=== PATIENT | female | born 1960 | race Caucasian/White ===

== ENCOUNTER 2017-04-29 12:15 | Emergency (ER) | payer SELFPAY ==
[2017-04-29] MEDS ORDERED: Ketorolac INJ* 30 MG/ML 1 ML VIAL IM ONE (14:38)
--- NOTE | 2017-04-29 14:39 | UC ---
Headache HPI - HPI Summary HPI Summary: 56 yo white female with gradual onset neck pain and decreased ROM as well as right hemicranial headache from occiput to forehead and from occiput to throat any movement of head intensifies pain as does lifting right arm no n/v/d no f/c no focal weakness or numbness no cough/cp or sob no trauma - History Of Current Complaint Chief Complaint: UCGeneralIllness Stated Complaint: NECK/HEAD PAIN Time Seen by Provider: 04/29/17 14:26 Hx Obtained From: Patient Onset/Duration: Gradual Onset, Lasting Days Onset Of Symptoms: Sudden Initially Headache Was: "Worst Headache Ever" Currently Pain Is: Current Pain Scale(0-10)= - 10 Pain Scale Used: 0-10 Numeric Timing: Constant Character: Throbbing, Pressure Aggravating Factor: Position Change Allevating Factors: Nothing Associated Signs And Symptoms: Positive: Dizziness, Neck Pain - Allergies/Home Medications Allergies/Adverse Reactions: Allergies Allergy/AdvReac Type Severity Reaction Status Date / Time Penicillins Allergy Severe Rash Verified 09/08/16 14:59 Home Medications: Home Medications Cyclobenzaprine TAB* [Flexeril 10 MG TAB*] 10 mg PO BID PRN 04/29/17 [History Confirmed 04/29/17] PMH/Surg Hx/FS Hx/Imm Hx Previously Healthy: Yes - Surgical History Surgical History: Yes Surgery Procedure, Year, and Place: D&C in 1996 - Family History Known Family History: Positive: Hypertension - both parents Negative: Cardiac Disease, Diabetes - Social History Alcohol Use: Rare Alcohol Amount: 1 GLASS WINE Substance Use Type: None Smoking Status (MU): Light Every Day Tobacco Smoker Review of Systems Constitutional: Negative Skin: Negative Eyes: Negative ENT: Negative Respiratory: Negative Cardiovascular: Negative Gastrointestinal: Negative Genitourinary: Negative Motor: Negative Neurovascular: Negative Musculoskeletal: Myalgia Neurological: Headache Psychological: Negative All Other Systems Reviewed And Are Negative: Yes Physical Exam Triage Information Reviewed: Yes Appearance: Well-Appearing, No Pain Distress, Well-Nourished Vital Signs: Initial Vital Signs Temp 98.9 F 04/29/17 12:16 Pulse 76 04/29/17 12:16 Resp 16 04/29/17 12:16 BP 144/96 04/29/17 12:16 Pulse Ox 100 04/29/17 12:16 Vital Signs Reviewed: Yes Eyes: Positive: Conjunctiva Clear, Other: - eomi/perrl/fundi benign ENT: Positive: Hearing grossly normal, Pharynx normal, Nasal congestion, Nasal drainage, Tonsillar exudate, Trismus, Muffled/hoarse voice Neck: Positive: Supple, Nontender, No Lymphadenopathy Respiratory: Positive: Lungs clear, Normal breath sounds Cardiovascular: Positive: RRR, No Murmur Abdomen Description: Positive: Nontender, No Organomegaly Musculoskeletal: Positive: ROM Intact, No Edema Neurological: Positive: Alert Psychological Exam: Normal Skin Exam: Normal Headache Course/Dx - Differential Dx/Diagnosis Provider Diagnoses: cervicogenic cephalgia. cervical strain Discharge - Discharge Plan Condition: Stable Disposition: HOME Prescriptions: HYDROcodone/ACETAMIN 5-325 MG* [[place] 5-325 TAB*] 1 tab PO Q4H PRN #10 tab MDD 2 PRN Reason: Pain Naproxen Sodium [Naproxen Sodium 500 MG TAB] 500 mg PO BID PRN #14 tab PRN Reason: Pain Patient Education Materials: Cervical Strain (ED), General Headache (ED) Referrals: Arun Christensen MD [Primary Care Provider] - 3 Days Additional Instructions: soft collar you may continue flexeril
--- NOTE | 2017-04-29 15:16 | RAD ---
HISTORY: Right hemicranial headache COMPARISONS: None TECHNIQUE: Multiple contiguous axial CT scans were obtained of the head without intravenous contrast. FINDINGS: HEMORRHAGE/INFARCT: There is no hemorrhage or acute infarct. MASSES/SHIFT: There is no mass or shift. EXTRA-AXIAL SPACES: There are no extra-axial fluid collections. SULCI AND VENTRICLES: The sulci and ventricles are normal in size and position for the patient's stated age. CEREBRUM: There are no focal parenchymal abnormalities. BRAINSTEM: There are no focal parenchymal abnormalities. CEREBELLUM: There are no focal parenchymal abnormalities. VESSELS: The vessels are grossly normal. PARANASAL SINUSES: The paranasal sinuses are clear. ORBITS: The orbits are unremarkable. BONES AND SOFT TISSUE: No bone or soft tissue abnormalities are noted. OTHER: None IMPRESSION: NO ACUTE INTRACRANIAL PATHOLOGY.
[2017-04-29 15:41] VITALS: BP 147/85
--- NOTE | 2017-04-29 15:45 | RAD ---
HISTORY: Neck pain, decreased range of motion COMPARISONS: None VIEWS: 6, Frontal, lateral, swimmer's, open-mouth odontoid, and bilateral oblique views of the cervical spine. FINDINGS: The cervical spine is visualized from the skull base through C7-T1. ALIGNMENT: There is straightening of the normal cervical lordosis. VERTEBRAL BODIES: The odontoid process is intact. The atlantoaxial intervals are symmetric. There is mild multilevel anterolateral marginal osteophyte formation. JOINTS: There is no subluxation or dislocation. The facet joints are unremarkable. There is no osseous neural foraminal narrowing. INTERVERTEBRAL DISCS: There is mild diffuse loss of intervertebral disc height. SOFT TISSUE: The prevertebral soft tissues are normal. OTHER: The skull base is normal. The lung apices are clear. IMPRESSION: STRAIGHTENING OF THE CERVICAL LORDOSIS. MILD DEGENERATIVE DISC DISEASE.
== END 2017-04-29 16:42 | disposition home or self-care (01) ==
LOC: UCEAST 12:15
DX: R51 Headache (principal); S16.1XXA Strain of muscle, fascia and tendon at neck level, initial encounter; Z72.0 Tobacco use
CPT/HCPCS: 70450; 72050; 99213; G0463; J1885